=== PATIENT | female | born 1980 | race Two or more races ===

== ENCOUNTER → 2016-10-22 | Outpatient (CLI) | payer OTHER ==
[~2016-10-22] MED LIST: GADOBUTROL 10 MMOL/10 ML VIAL IV ONE
--- NOTE | 2016-10-22 10:05 | RAD ---
EXAM: MRI BRAIN WITH AND WITHOUT CONTRAST. HISTORY: Left-sided weakness, diplopia. TECHNIQUE: Magnetic resonance images of the brain were obtained before and after the intravenous administration of 10 mL Gadavist. COMPARISON: None. FINDINGS: There are limitations from motion artifact on some series. The examination remains diagnostic for the following. Cerebellar tonsillar ectopia measures 7 mm on the right and 4 mm on the left. The foramen magnum is somewhat crowded. There is a syrinx within the visualized cervical cord that measures up to 5 mm anteroposteriorly at the inferior margin of the field of view. This extends into the medulla and tracks off midline toward the left the result in a fluid collection that measures 8 x 4 mm transaxially and 1.5 cm craniocaudally. There are no enhancing lesions. There is no diffusion restriction. There are no T1 or T2 signal abnormalities elsewhere. The ventricles are normal in size and position. The paranasal sinuses are clear. The orbits are unremarkable. The temporal bones are unremarkable. The calvarium demonstrates no suspicious lesions. IMPRESSION: 1. 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 This is contiguous with syringobulbia that tracks off midline into the left medulla. Postcontrast analysis could exclude an underlying lesion. Imaging of the cervical and thoracic spine could further assess extent. Neurosurgical consultation is recommended. Electronically signed by: Sampson Harris MD (10/22/2016 10:01 AM) [id number]
== END | disposition home or self-care (01) ==
LOC: MRI 08:19
PROVIDERS: ATTEND Physician Assistant Medical
DX: R20.2 Paresthesia of skin (principal); R53.1 Weakness; H53.2 Diplopia
CPT/HCPCS: 70553; A9585

== ENCOUNTER → 2016-12-21 | Outpatient (CLI) | payer OTHER ==
--- NOTE | 2016-12-21 12:36 | RAD ---
MRI Cervical Spine with and without contrast History:SPINAL CORD MALFORMATION, LEFT ARM WEAKNESS Technique: Multiplanar, multi sequential pre and postcontrast MR imaging was performed of the cervical spine. Contrast: 10 cc Gadavist Comparison: None Findings: There is motion degradation variably for all image sequences. There is a somewhat expansile cervical syrinx which extends from C1 to through C7-T1 over approximately 9.5 cm in length, greatest axial dimension up to 1.1 cm transverse by 0.9 cm AP. This is not associated with obvious enhancement. There is also apparently a syrinx of the thoracic cord which is not fully included, does not result in significant cord expansion. There is no significant cervical spinal stenosis. There is likely minimal posterior bulge C5-6. Neural foramina are poorly characterized due to motion, not obviously narrowed. There is no significant marrow edema. Impression: 1. There is expansile nonenhancing syrinx of the cervical cord, also apparently of syrinx of the visualized thoracic cord without significant cord expansion, not fully included. 2. Accurate evaluation of the neural foramina is limited due to motion, no obvious neural foramina compromise. Electronically signed by: Darian Acharya MD (12/21/2016 12:33 PM) [id number]
== END | disposition home or self-care (01) ==
LOC: MRI 09:59
PROVIDERS: ATTEND Family Medicine
DX: G95.0 Syringomyelia and syringobulbia (principal); Q06.9 Congenital malformation of spinal cord, unspecified; R53.1 Weakness
CPT/HCPCS: 72156; A9585